=== PATIENT | male | born 1980 | race Caucasian/White ===

== ENCOUNTER 2018-01-18 10:57 | Inpatient (IN) | payer SELFPAY ==
[2018-01-18] MEDS ORDERED: LORAZEPAM INJ 2 MG/1 ML VIAL IV ONE ×2 (13:06→16:03)
[2018-01-18] MEDS ORDERED: NICOTINE 21 MG/24 HR PATCH.TD24 TD ONE (13:08)
--- NOTE | 2018-01-18 13:17 | ER Document Report ---
ED General - General Chief Complaint: Anxiety Stated Complaint: DIFFICULTY BREATHING Time Seen by Provider: 01/18/18 12:30 Mode of Arrival: Medic Information source: Patient Notes: Patient is a 37-year-old male who presents to the emergency department today via EMS for complaint of anxiety and requesting detox. Patient reports he is here from [place] working and does not have any more Klonopin. Patient reports he drinks 25-30 beers per day. His last beer was approximately 4 hours ago. Patient also smokes approximately 1.5 packs of cigarettes per day. He states that he wants to detox from alcohol. He states that he drinks every day throughout the entire day. He does have a mild tremor noted on upon this initial assessment, his heart rate is 125. Patient reports that he has been through acute DTs in the past, he states that he would like to be admitted to the hospital to help him detox. Patient reports past medical history of anxiety and asthma. TRAVEL OUTSIDE OF THE [place] IN LAST 30 DAYS: No - Related Data Allergies/Adverse Reactions: codeine Allergy (Verified 01/18/18 11:12) Past Medical History - General Information source: Patient - Social History Smoking Status: Current Every Day Smoker Chew tobacco use (# tins/day): No Frequency of alcohol use: Heavy Drug Abuse: None Family History: Reviewed & Not Pertinent Patient has suicidal ideation: No Patient has homicidal ideation: No Pulmonary Medical History: Reports: Hx Asthma Renal/ Medical History: Denies: Hx Peritoneal Dialysis Psychiatric Medical History: Reports: Hx Depression - and anxiety Review of Systems - Review of Systems Cardiovascular: Heart racing Neurological/Psychological: Anxiety -: Yes All other systems reviewed and negative Physical Exam - Vital signs Vitals: Temp 98.5 F 01/18/18 11:16 - Notes Notes: PHYSICAL EXAMINATION: GENERAL: Well-appearing, well-nourished and in moderate distress. HEAD: Atraumatic, normocephalic. EYES: Pupils equal round and reactive to light, extraocular movements intact, sclera anicteric, conjunctiva are normal. ENT: Nares patent, oropharynx clear without exudates. Moist mucous membranes. NECK: Normal range of motion, supple without lymphadenopathy LUNGS: Breath sounds clear to auscultation bilaterally and equal. No wheezes rales or rhonchi. HEART: S1 S2 present without murmurs ABDOMEN: Soft, nontender, nondistended abdomen. No guarding, no rebound. No masses appreciated. Musculoskeletal: Normal range of motion, no pitting or edema. No cyanosis. NEUROLOGICAL: Cranial nerves grossly intact. Normal speech. Normal sensory, motor exams. Mild tremor noted. PSYCH: Anxious. SKIN: Warm, Dry, normal turgor, no rashes or lesions noted. Course - Re-evaluation Re-evalutation: 01/18/18 13:15 Patient continues to have a heart rate in the 120s. His CIWA score is 10. Will give Ativan 2 mg IV while awaiting lab studies. Plan to admit patient for acute DTs as soon as all labs resulted. 01/18/18 16:04 CIWA at 8, will give additional IV ativan, all labs resulted and are unremarkable. Will call hospitalist for admission. 01/18/18 16:[address] Pham, patient updated on plan of care. - Vital Signs Vital signs: Temp Pulse Resp BP Pulse Ox 98.5 F 19 133/84 H 94 01/18/18 11:16 01/18/18 15:01 01/18/18 15:01 01/18/18 15:01 - Laboratory Result Diagrams: 01/18/18 12:24 01/18/18 12:24 Laboratory results interpreted by me: 01/18/18 01/18/18 12:24 14:25 BUN 4 L AST 160 H ALT 134 H Urine Ketones TRACE H Discharge - Discharge Clinical Impression: DTs (delirium tremens), Tachycardia Condition: Stable Disposition: ADMITTED INPATIENT Admitting Provider: Hospitalist Instructions: Anxiety ([facility])
[2018-01-18 13:27] LABS: ABSOLUTE BASOPHILS # (AUTO) 0.1 10^3/uL (0.0-0.2); ABSOLUTE EOSINOPHILS # (AUTO) 0.1 10^3/uL (0.0-0.6); ABSOLUTE LYMPHOCYTES (AUTO) 1.3 10^3/uL (0.5-4.7); ABSOLUTE MONOCYTES (AUTO) 0.5 10^3/uL (0.1-1.4); BASOPHILS % (AUTO) 1.1 % (0-2); HEMATOCRIT 47.9 % (37.9-51.0); HEMOGLOBIN 16.7 g/dL (13.5-17.0); LYMPHOCYTES % (AUTO) 21.9 % (13-45); MEAN CORPUSCULAR HEMOGLOBIN 31.8 pg (27.0-33.4); MEAN CORPUSCULAR HGB CONC 34.8 g/dL (32.0-36.0); MEAN CORPUSCULAR VOLUME 91 fl (80-97); MONOCYTES % (AUTO) 8.1 % (3-13); PLATELET COUNT 176 10^3/uL (150-450); RED BLOOD COUNT 5.24 10^6/uL (4.35-5.55); RED CELL DISTRIBUTION WIDTH 13.8 % (11.5-14.0); SEGMENTED NEUTROPHILS % (AUTO) 67.9 % (42-78); TOTAL CELLS COUNTED % (AUTO) 100 %; WHITE BLOOD COUNT 5.9 10^3/uL (4.0-10.5)
[2018-01-18 13:40] LABS: ALANINE AMINOTRANSFERASE 134 U/L (21-72); ALBUMIN 4.6 g/dL (3.5-5.0); ALCOHOL 211 mg/dL (NONE DETECTED); ALKALINE PHOSPHATASE 109 U/L (38-126); ANION GAP 16 (5-19); ASPARTATE AMINO TRANSFERASE 160 U/L (17-59); BILIRUBIN,DIRECT 0.4 mg/dL (0.0-0.4); BILIRUBIN,TOTAL 0.6 mg/dL (0.2-1.3); BLOOD UREA NITROGEN 4 mg/dL (7-20); CALCIUM 8.9 mg/dL (8.4-10.2); CARBON DIOXIDE 26 mmol/L (22-30); CHLORIDE 101 mmol/L (98-107); GLUCOSE 99 mg/dL (75-110); PHOSPHORUS 3.2 mg/dL (2.5-4.5); POTASSIUM 4.2 mmol/L (3.6-5.0); SODIUM 142.7 mmol/L (137-145); TOTAL PROTEIN 8.1 g/dL (6.3-8.2)
[2018-01-18 14:47] LABS: APPEARANCE,URINE CLEAR; BILIRUBIN,URINE NEGATIVE (NEGATIVE); COLOR,URINE COLORLESS; GLUCOSE, URINE NEGATIVE (NEGATIVE); KETONES,URINE TRACE mg/dL (NEGATIVE); LEUKOCYTE ESTERASE,URINE NEGATIVE (NEGATIVE); NITRITE,URINE NEGATIVE (NEGATIVE); PROTEIN,URINE NEGATIVE (NEGATIVE); URINE SPECIFIC GRAVITY 1.002; UROBILINOGEN,URINE NEGATIVE mg/dL (<2.0)
[2018-01-18] MEDS ORDERED: NORMAL SALINE 1000 ML 1,000 ML IV ONE (15:26)
[2018-01-18] MEDS ORDERED: ONDANSETRON HCL INJ/PF 4 MG/2 ML SDV IV PRN (17:58)
[2018-01-18] MEDS ORDERED: ACETAMINOPHEN 325 MG TABLET PO PRN (17:58)
[2018-01-18] MEDS ORDERED: LEVALBUTEROL HCL NEB 0.63 MG/3 ML AMPUL NEB PRN (17:58)
[2018-01-18] MEDS ORDERED: LORAZEPAM INJ 2 MG/1 ML VIAL IV PRN (17:58)
[2018-01-18] MEDS ORDERED: NORMAL SALINE 1000 ML 1,000 ML IV SCH (18:00)
--- NOTE | 2018-01-18 18:25 | PDOC H&P ---
History of Present Illness Admission Date/PCP: 01/18/18 17:07 History of Present Illness: ELISABETH ALVAREZ is a 37 year old male with no significant past medical history except for asthma and alcohol abuse who presented to the ED complaining of anxiety and withdrawing from alcohol. Patient states that he has stopped drinking after his last year this morning. States in the past he has had stopped and felt anxious. He also states that he ran out of his Klonopin. Patient states that he drinks 25-30 beers daily and his last drink was this morning but now that he is stopped he is not feeling so well. States he is having some shaking of his hands but denies chest pain, shortness of breath, abdominal pain, nausea or vomiting, hallucinations or delirium at this time. States that he is at the symptoms in the past and he goes through withdrawal. He is from [place] and he is in [place] now doing some work. States that he is to get his Klonopin from [place] but he thought he was going to go to half-way and hence has not gone back to [place] to refill of medications. States that he has not had his Klonopin in over 2 weeks. Admits to having asthma and uses inhaler at home. But states that he has run out of the inhaler also. Past Medical History Pulmonary Medical History: Reports: Asthma Psychiatric Medical History: Reports: Depression - and anxiety Social History Information Source: Patient Lives with: Alone Smoking Status: Current Every Day Smoker Frequency of Alcohol Use: Heavy Amount of Alcoholic Beverages Per Day: 25-30 beers daily Last Alcohol Use: 01/18/18 Hx Recreational Drug Use: No Drugs: None Hx Prescription Drug Abuse: No - Advance Directive Resuscitation Status: Full Code Family History Family History: Reviewed & Not Pertinent Parental Family History Reviewed: Yes Children Family History Reviewed: Unknown Sibling(s) Family History Reviewed.: Unknown Medication/Allergy Home Medications: Albuterol Sulfate [Proair HFA Inhalation Aerosol 8.5 gm MDI] 1 puff IH Q4HP PRN 01/18/18 Clonazepam [Klonopin 1 mg Tablet] 1 mg PO Q12 01/18/18 Allergies/Adverse Reactions: codeine Allergy (Verified 01/18/18 11:12) Review of Systems Constitutional: PRESENT: as per HPI. ABSENT: fever(s), headache(s) Eyes: ABSENT: visual disturbances Ears: ABSENT: hearing changes Nose, Mouth, and Throat: ABSENT: vertigo Cardiovascular: ABSENT: chest pain, edema Respiratory: ABSENT: cough Gastrointestinal: ABSENT: abdominal pain, nausea, vomiting Neurological: ABSENT: abnormal movements, focal weakness, syncope Psychiatric: ABSENT: hallucinations, homidical ideation, suicidal ideation Physical Exam Vital Signs: Temp Pulse Resp BP Pulse Ox 98.5 F 20 122/87 H 95 01/18/18 11:16 01/18/18 17:01 01/18/18 17:01 01/18/18 17:01 Intake & Output 01/17/18 01/18/18 01/19/18 06:59 06:59 06:59 Intake Total 1000 Balance 1000 General appearance: PRESENT: no acute distress Head exam: PRESENT: atraumatic, normocephalic Eye exam: PRESENT: EOMI, PERRLA. ABSENT: conjunctival injection Ear exam: PRESENT: normal external ear exam Mouth exam: PRESENT: other - Dry mucous membrane Respiratory exam: PRESENT: clear to auscultation ebony, symmetrical Cardiovascular exam: PRESENT: +S1, +S2, tachycardia Pulses: PRESENT: +2 pedal pulses bilateral GI/Abdominal exam: PRESENT: normal bowel sounds, soft. ABSENT: tenderness Extremities exam: ABSENT: pedal edema Neurological exam: PRESENT: alert, awake, oriented to person, oriented to place , oriented to time, oriented to situation, CN II-XII grossly intact Skin exam: PRESENT: dry, warm Assessment & Plan - Diagnosis (1) Alcohol abuse Is this a current diagnosis for this admission?: Yes (2) Alcohol withdrawal Qualifiers: Complication of substance-induced condition: with unspecified complication Qualified Code(s): F10.239 - Alcohol dependence with withdrawal, unspecified Is this a current diagnosis for this admission?: Yes (3) Asthma Qualifiers: Asthma severity: unspecified severity Asthma complication type: unspecified Is this a current diagnosis for this admission?: Yes (4) Psychiatric disorder Is this a current diagnosis for this admission?: Yes (5) Tachycardia Is this a current diagnosis for this admission?: Yes (6) Occasional tremors Is this a current diagnosis for this admission?: Yes - Time Time Spent: 50 to 70 Minutes Anticipated discharge: Home Within: within 72 hours - Plan Summary Plan Summary: Alcohol withdrawal-concern for delirium tremens-we will start him on CIWA protocol. We will get neuro checks, place him in the IMCU with close observation. We will provide him with folic acid, thiamine and multivitamins. I spoken with pharmacy and started him on an Ativan taper. I also added Ativan as needed for seizures. Patient drinks about 25-30 beers daily. Asthma - I have added Xopenex as needed. Psych disorder-he is on Klonopin twice a day but he has not taken his medicine for over 2 weeks. We will restart his Klonopin at this time.
[2018-01-18] MEDS: THIAMINE HCL 100 MG TABLET PO SCH (18:43)
[2018-01-18] MEDS: DOCUSATE SODIUM 100 MG CAPSULE PO SCH (18:43)
[2018-01-18] MEDS: MULTIVITAMIN TABLET PO SCH (18:43)
[2018-01-18] MEDS: FOLIC ACID 1 MG TABLET PO SCH (18:43)
[2018-01-18 19:11] LABS: URINE AMPHETAMINES SCREEN NEGATIVE; URINE BARBITURATES SCREEN NEGATIVE; URINE BENZODIAZEPINES SCREEN NEGATIVE; URINE COCAINE SCREEN NEGATIVE; URINE MARIJUANA (THC) SCREEN NEGATIVE; URINE METHADONE SCREEN NEGATIVE; URINE PHENCYCLIDINE SCREEN NEGATIVE
[2018-01-18 19:50] LABS: FOLATE 6.33 ng/mL (>2.76)
[2018-01-18] MEDS: LORAZEPAM INJ 2 MG/1 ML VIAL (TAPER DOSING) IV SCH (20:11)
[2018-01-18] MEDS ORDERED: HALOPERIDOL LACTATE INJ 5 MG/1 ML VIAL IV ONE (22:00)
--- NOTE | 2018-01-18 22:34 | RADIOLOGY REPORT (SQ) ---
CT CHEST ANGIOGRAPHY WITHOUT THEN WITH IV CONTRAST HISTORY: Shortness of breath. Evaluate for pulmonary embolism. COMPARISON: None. TECHNIQUE: CT angiogram of the chest with IV contrast. 3-D MIP images were obtained in coronal and sagittal reconstructions. This exam was performed according to our departmental dose-optimization program, which includes automated exposure control, adjustment of the mA and/or kV according to patient size and/or use of iterative reconstruction technique. FINDINGS: The thyroid gland is unremarkable. No mediastinal, hilar, or axillary adenopathy is seen. The heart size is normal. No pericardial effusion is seen. There is no thoracic aortic aneurysm or dissection. There is motion artifact which limits evaluation of the segmental branches. No filling defects in the pulmonary trunk or the left and right main pulmonary arteries are seen. No consolidation, pleural effusion, or pneumothorax is identified. Limited views of the upper abdomen demonstrate no acute findings. Diffuse hepatic steatosis is present. The osseous structures are intact. IMPRESSION: Motion artifact limits evaluation of segmental branches. However, no large central or saddle pulmonary embolism is seen. No evidence of right heart strain.
[2018-01-19] MEDS: HEPARIN SOD (PORCINE) 5,000 UNIT/ML 1 ML SYRINGE SUBCUT SCH ×3 (00:46→13:27)
[2018-01-19] MEDS: FAMOTIDINE 20 MG TABLET PO SCH ×2 (00:59→10:41)
[2018-01-19] MEDS: CLONAZEPAM 1 MG TABLET PO SCH ×2 (00:59→10:41)
[2018-01-19] MEDS: LORAZEPAM INJ 2 MG/1 ML VIAL (TAPER DOSING) IV SCH ×3 (02:39→13:24)
[2018-01-19 05:03] LABS: ABSOLUTE EOSINOPHILS # (AUTO) 0.1 10^3/uL (0.0-0.6); ABSOLUTE LYMPHOCYTES (AUTO) 1.5 10^3/uL (0.5-4.7); ABSOLUTE MONOCYTES (AUTO) 0.5 10^3/uL (0.1-1.4); ABSOLUTE NEUT (AUTO) 2.7 10^3/uL (1.7-8.2); BASOPHILS % (AUTO) 0.9 % (0-2); EOSINOPHILS % (AUTO) 2.1 % (0-6); HEMATOCRIT 45.4 % (37.9-51.0); HEMOGLOBIN 15.8 g/dL (13.5-17.0); LYMPHOCYTES % (AUTO) 30.8 % (13-45); MEAN CORPUSCULAR HEMOGLOBIN 31.8 pg (27.0-33.4); MEAN CORPUSCULAR HGB CONC 34.8 g/dL (32.0-36.0); MEAN CORPUSCULAR VOLUME 91 fl (80-97); MONOCYTES % (AUTO) 9.5 % (3-13); PLATELET COUNT 128 10^3/uL (150-450); RED BLOOD COUNT 4.97 10^6/uL (4.35-5.55); RED CELL DISTRIBUTION WIDTH 13.9 % (11.5-14.0); SEGMENTED NEUTROPHILS % (AUTO) 56.7 % (42-78); TOTAL CELLS COUNTED % (AUTO) 100 %; WHITE BLOOD COUNT 4.8 10^3/uL (4.0-10.5)
[2018-01-19 05:28] LABS: ANION GAP 12 (5-19); BLOOD UREA NITROGEN 7 mg/dL (7-20); CALCIUM 8.7 mg/dL (8.4-10.2); CARBON DIOXIDE 26 mmol/L (22-30); CHLORIDE 104 mmol/L (98-107); GLUCOSE 89 mg/dL (75-110); LIPASE 61.7 U/L (23-300); POTASSIUM 4.2 mmol/L (3.6-5.0); SODIUM 142.1 mmol/L (137-145)
[2018-01-19] MEDS ORDERED: NORMAL SALINE 1000 ML 1,000 ML IV PRN (08:00)
[2018-01-19] MEDS: FOLIC ACID 1 MG TABLET PO SCH (10:40)
[2018-01-19] MEDS: DOCUSATE SODIUM 100 MG CAPSULE PO SCH (10:41)
[2018-01-19] MEDS: THIAMINE HCL 100 MG TABLET PO SCH (10:41)
[2018-01-19] MEDS: MULTIVITAMIN TABLET PO SCH (10:41)
[2018-01-19] MEDS ORDERED: NICOTINE 21 MG/24 HR PATCH.TD24 TD SCH (14:45)
[2018-01-19 15:24] VITALS: BP 138/91
--- NOTE | 2018-01-19 17:38 | Progress Note ---
Provider Note Provider Note: Called by nursing that patient wants to leave AMA. Went to see patient and he states that he has to go. Patient states that he is in [place] with his boss who lives in [place]. States that he does not have a ride back to [place] and so he has to leave. Advised him that this is AGAINST MEDICAL ADVICE and then he should stay and get treated for his alcohol withdrawal. I told him that leaving now can be bad for his health and his condition may deteriorate and he can even . He states he understands and verbalizes understanding of even dying. States he still has to go. He does request that I give him a few days of Klonopin and albuterol until he can see his doctor in [place].
--- NOTE | 2018-01-20 10:40 | EKG REPORT ---
SEVERITY:- BORDERLINE ECG - SINUS RHYTHM BORDERLINE T ABNORMALITIES, INFERIOR LEADS : Confirmed by: Chu Townsend 20-Jan-2018 10:39:24
--- NOTE | 2018-01-20 10:40 | EKG REPORT ---
SEVERITY:- BORDERLINE ECG - SINUS TACHYCARDIA BORDERLINE T ABNORMALITIES, INFERIOR LEADS : Confirmed by: Chu Townsend 20-Jan-2018 10:39:08
--- NOTE | 2018-01-22 17:18 | PDOC DISCHARGE SUMMARY ---
General - Admit/Disc Date/PCP Admission Date/Primary Care Provider: 01/18/18 17:07 Discharge Date: 01/19/18 - Discharge Diagnosis (1) Alcohol abuse Is this a current diagnosis for this admission?: Yes (2) Alcohol withdrawal Is this a current diagnosis for this admission?: Yes (3) Asthma Is this a current diagnosis for this admission?: Yes (4) Psychiatric disorder Is this a current diagnosis for this admission?: Yes (5) Tachycardia Is this a current diagnosis for this admission?: Yes (6) Occasional tremors Is this a current diagnosis for this admission?: Yes - Additional Information Resuscitation Status: Full Code Prescriptions: Albuterol Sulfate [Ventolin Hfa 8 gm Mdi (1 Mdi/ER Disp)] 2 puff IH ASDIR PRN # 1 inhaler PRN Reason: Shortness Of Breath Clonazepam [Klonopin 1 mg Tablet] 1 mg PO Q12 #14 tablet Home Medications: Albuterol Sulfate [Proair HFA Inhalation Aerosol 8.5 gm MDI] 1 puff IH Q4HP PRN 01/18/18 Albuterol Sulfate [Ventolin Hfa 8 gm Mdi (1 Mdi/ER Disp)] 2 puff IH ASDIR PRN # 1 inhaler 01/19/18 Clonazepam [Klonopin 1 mg Tablet] 1 mg PO Q12 #14 tablet 01/19/18 History of Present Illness History of Present Illness: 37yo M admitted for alcohol withdrawl Hospital Course Hospital Course: Called by nursing that patient wants to leave AMA. Went to see patient and he states that he has to go. Patient states that he is in [place] with his boss who lives in [place]. States that he does not have a ride back to [place] and so he has to leave. Advised him that this is AGAINST MEDICAL ADVICE and then he should stay and get treated for his alcohol withdrawal. I told him that leaving now can be bad for his health and his condition may deteriorate and he can even . He states he understands and verbalizes understanding of even dying. States he still has to go. He does request that I give him a few days of Klonopin and albuterol until he can see his doctor in [place]. Physical Exam Vital Signs: Temp Pulse Resp BP Pulse Ox 98.7 F 87 12 138/91 H 99 01/19/18 15:23 01/19/18 15:23 01/19/18 15:23 01/19/18 15:23 01/19/18 15:23 Results Laboratory Results: 01/19/18 04:43 01/19/18 04:43 Impressions: Chest/Abdomen CTA 01/18/18 00:00 IMPRESSION: Motion artifact limits evaluation of segmental branches. However, no large central or saddle pulmonary embolism is seen. No evidence of right heart strain. Qualifiers - * PATIENT BEING DISCHARGED WITH ANY OF THE FOLLOWING DIAGNOSIS: No
== END 2018-01-19 15:24 | disposition left against medical advice (07) | DRG 894 ==
LOC: ER 10:57 → EH 17:07 → 3W 23:59
PROVIDERS: ADMIT Internal Medicine; ATTEND Internal Medicine
DX: F10.231 Alcohol dependence with withdrawal delirium (principal); F41.9 Anxiety disorder, unspecified; J45.909 Unspecified asthma, uncomplicated; R00.0 Tachycardia, unspecified; Y90.7 Blood alcohol level of 200-239 mg/100 ml; F99 Mental disorder, not otherwise specified; F17.210 Nicotine dependence, cigarettes, uncomplicated
CPT/HCPCS: 36415; 71275; 80048; 80053; 80307; 81001; 82140; 82607; 82746; 83690; 83735; 84100; 84443; 85025; 93005; 93010; 96374; 99285; J1630; J1644; J2060; J7030; J7614